=== PATIENT | male | born 1955 | race Caucasian/White ===

== ENCOUNTER 2017-09-16 06:56 | Observation (INO) | payer BC, OTHER ==
[~2017-09-16] VITALS: Ht 180.3 cm; Wt 60.7 kg
--- NOTE | ~2017-09-16 | CATHLAB ---
[facility] [place] [address] INVASIVE PROCEDURE REPORT Name: JANINE PRECIADO Matthew Room #: 211-P [facility] ..#: [id number] Admission: 09/16/17 Attend Phys: Loc Hernandez MD Discharge: Date of : 57 Date of Service: 09/16/17 1530 Report #: [id number] THIS REPORT FOR: //name// APPROVED REPORT Patient Details Patient Status: Out-Patient Room #: The patient is a 62 year-old male Event Personnel Loc Hernandez Tax Compliance Representative, Cinthia Cid, Dami Martinez RN, Loc Rae Knisely, Ceola RN lehr stripper Performed Art Access - R radial artery 34914 Initial Mod Sed Same Phys/QHP Gr5y 548421 87152 Mod Sed Same Phys/QHP Ea 431789 Left Heart Cath w/or w/o Coronaries 8633873 [facility] w/wo Plasty Single RCA 211945 Hemostasis with Hemoband Indication Syncope, Cardiomyopathy Risk Factors Hypercholesterolemia, Tobacco History () Admission/Lab Medications/Medications given during procedure Heparin Unfract. Procedure Narrative The patient was brought electively to the Cardiac Catheterization Laboratory and was prepped and draped in a sterile manner. The Right Wrist^ was infiltrated with 1% Lidocaine subcutaneous anesthesia. A TRANSRADIAL SLENDER 6F GLIDESHEATH KIT #[id number] sheath was inserted into the Right Radial Artery^. Coronary angiography was performed using coronary diagnostic catheters. The right coronary system was accessed and visualized with a JR 4 catheter. The left coronary system was accessed and visualized with a JL 4 catheter. The left ventricle was accessed and visualized with a Pigtail catheter. Left ventricular/Aortic Valve gradient assessed via catheter pullback. Left ventriculogram was performed in 30 degree projection. Closure device was deployed with a 6 Fr VASC BAND R 24CM #[id number]. The patient tolerated the procedure well and there were no complications associated with the procedure. There was no hematoma. [facility] [address] [place] [address] INVASIVE PROCEDURE REPORT Name: ILANAJANINE Matthew Room #: 211-P [facility].#: [id number] Admission: 09/16/17 Attend Phys: Loc Hernandez MD Discharge: Date of : 57 Date of Service: 09/16/17 1530 Report #: [id number] Intraoperative Conscious Sedation Sedation start time: 08:05 Case end Time: 09:36 Fentanyl 25.0 mcg Versed 2.0 mg Fluoro Time: 15.09 minutes Dose: DAP 4385.10 cGycm2 450 mGy Contrast Type and Amount: Omnipaque 150 ml Coronary Angiography The patient's coronary anatomy is right dominant. [place] Artery Percent Stenosis Left Main: 40 % Prox LAD: 50 % Mid/Distal LAD: 70 % Circumflex: 0 % RCA: 80 % Ramus: %left main had an ostial 40% stenosis. rca was tortuous and had a proximal 80% and mid 70% stenosis. Left Ventriculography The left ventricle is normal in size with normal contractility. The left ventricular ejection fraction is estimated to be 50-55%. Left ventricular wall motion abnormalities are not present. There is no mitral insufficiency. Hemodynamics The aortic pressure is 94/69 mmHg with a mean of 80 mmHg. The left ventricular pressure is 105/6 mmHg with a mean of mmHg. The left ventricular end diastolic pressure is 15 mmHg. There was no gradient across the aortic valve upon pullback. Pullback from the left ventricle to the aorta revealed no gradient across the aortic valve. PCI Technique Lesion Anticoagulation was achieved with Heparin. Patient was preloaded with Brillinta. Percutaneous coronary intervention was performed on the mid right coronary artery. The lesion stenosis prior to intervention was 70% with CLAIRE 3 flow. A VISTA 6FR AL1 #[id number] Guide Catheter was used to engage the RCA ostium. A Whisper Wire .014 x 190 #[id number] Interventional Guidewire was used to cross the lesion. BALLOON DILATION A Balloon catheter TREK RX 2.50 X 8 #[id number] was inserted and inflated up to 14.00atm for 22seconds. Repeat angiography revealed the following post-dilatation results: 50% stenosis. STENT DEPLOYMENT [facility] [address] [place] [address] INVASIVE PROCEDURE REPORT Name: JANINE PRECIADO Room #: 211-P [facility] M.R.#: [id number] Admission: 09/16/17 Attend Phys: Loc Hernandez MD Discharge: Date of : 57 Date of Service: 09/16/17 1530 Report #: [id number] A drug-eluting stent RESOLUTE RX 3.0 X 15 #[id number] was inserted and inflated up to 12.00atm for 12seconds. Repeat angiography revealed the following post-stent deployment results: 0% stenosis. Final angiography reveals 0 % stenosis with CLAIRE 3 flow. COMMENTS Poor guide support with a 6 fr jcr4 guide. Right Amplatz I guide unable to cannulate RCA. Left Amplatz I guide noted to deep throat the rca with pressure damping. Catheter was pulled back proximal to stenosis. BMW wire unable to cross mid rca stenosis, possibly secondary to poor guide support. Whisper wire was able to cross the stenosis in the mid rca. PCI Technique Lesion 2 Percutaneous Coronary Intervention was performed on the proximal right coronary artery. Patient was preloaded with Brillinta. Percutaneous coronary intervention was performed on the proximal right coronary artery. The lesion stenosis prior to intervention was 80% with CLAIRE 3 flow. A VISTA 6FR AL1 #837263 Guide Catheter was used to engage the RCA ostium. A Whisper Wire .014 x 190 #[id number] Interventional Guidewire was used to cross the lesion. Balloon Dilation A Balloon catheter TREK RX 2.50 X 8 #[id number] was inserted and inflated up to 16.00atm for 15seconds. Repeat angiography revealed the following post-dilatation results: 50% stenosis with staining proximally suggesting dissection caused by the guiding catheter. Stent Deployment A drug-eluting stent RESOLUTE RX 3.0 X 12 #[id number] was inserted and inflated up to 9atm for 11seconds. Additional Inflation: 20.00atm for 22seconds. Guide catheter was pulled back to the ostium of the rca. The stent was able to cover the stenosis as well as the proximal dissection caused by the guide catheter. Final angiography reveals 0 % stenosis with CLAIRE 3 flow. Comments Final arteriogram performed using a 6 fr jr4 diagnostic catheter should no residual stenosis nor residual dissection Conclusion [facility] [address] [place] [address] INVASIVE PROCEDURE REPORT Name: ILANAJANINE Matthew Room #: 211-P [facility] IN M.R.#: [id number] Admission: 09/16/17 Attend Phys: Loc Hernandez MD Discharge: Date of : 57 Date of Service: 09/16/171529 Report #: [id number] 1. cad manifested by a 40% ostial left main stenosis and a 70% mid lad stenosis. 2. proximal 80% and mid 70% stenosis noted in the rca 3. successful placement of stents in the proximal and mid rca Recommendations Smoking Cessation Cardiac Rehabilitation Referral Aggressive Medical Therapy Medications Administered Ticagrelor <ELECTRONICALLY SIGNED> By: Loc Hernandez MD, FACC 09/16/171529 29 29 Loc Hernandez MD, FACC /INF
--- NOTE | ~2017-09-16 | EKG ---
[address] [place] [address] [facility] [place] [address] ELECTROCARDIOGRAM REPORT Name: JANINE PRECIADO [id number] Admission: 09/16/17 Attend Phys: Loc Hernandez MD, FA Discharge: Date of : 57 Report #: [id number] THIS REPORT FOR: //name// [facility] Test Date: 2017-09-16 Test Time: 07:31:15 Pat Name: JANINE PRECIADO Department: Room: Gender: Support Team Member: Teodoro VALDES : 1955 Requested By: Loc Hernandez Order Number: [id number] MD: Lizandro Fuller Measurements Intervals [place] Rate: 78 P: 78 IN: 126 QRS: 50 QRSD: 102 T: 68 QT: 421 QTc: 480 Interpretive Statements Sinus rhythm Borderline prolonged QT interval No previous ECG available for comparison Electronically Signed On 09-16-2017 8:56:19 CDT by Lizandro Fuller [email or web address] <ELECTRONICALLY SIGNED> By: Lizandro Fuller MD, [facility] 09/16/17 0856 0731 0731 Lizandro Fuller MD, FACC /EPI
--- NOTE | ~2017-09-16 | EKG ---
[address] [address] ELECTROCARDIOGRAM REPORT Name: JANINE PRECIADO Room #: 211-P [facility].R.#: [id number] Admission: 09/16/17 Attend Phys: Loc Hernandez MD, FA Discharge: Date of : 57 Report #: [id number] THIS REPORT FOR: //name// [facility] Test Date: 2017-09-16 Test Time: 10:37:23 Pat Name: JANINE PRECIADO Department: Room: 211 Gender: M Plating Foreman: Teodoro VALDES : 1955 Requested By: Loc Hernandez Order Number: [id number] MD: Rio Suarez Measurements Intervals [place] Rate: 69 P: 87 HI: 136 QRS: 44 QRSD: 94 T: 83 QT: 433 QTc: 464 Interpretive Statements Sinus rhythm Compared to ECG 09/16/2017 07:31:15 No significant changes Electronically Signed On 09-16-2017 11:20:44 CDT by Rio Suarez [email or web address] <ELECTRONICALLY SIGNED> By: Rio Suarez MD 09/16/17 1120 1037 1037 Rio Suarez MD /TATIANA
--- NOTE | ~2017-09-16 | D ---
[facility] [place] [address] DISCHARGE SUMMARY Name: JANINE PRECIADO Room #: 211-P [facility] Natty Campbell#: [id number] Admission: 09/16/17 Attend Phys: Loc Hernandez MD, FA Discharge: 09/17/17 Date of : 57 Report #: [id number] THIS REPORT FOR: //name// CC: Loc Morrison DO DATE OF SERVICE: 09/17/2017 DISCHARGE DIAGNOSES: 1. Syncope. 2. Coronary artery disease. 3. Cardiomyopathy. 4. Hyperlipidemia. 5. Tobacco abuse. 6. Chronic obstructive pulmonary disease. CONSULTANTS: None. PROCEDURES: Left heart catheterization with placement of two drug-eluting stents in the right coronary artery via the radial approach. PRIMARY CARE PHYSICIAN: Dr. Loc Morrison, in [place], [place]. HISTORY OF PRESENT ILLNESS: The patient is a 62-year-old white male who is admitted for outpatient cardiac catheterization. The patient has no previous history of heart disease. Approximately a month ago, the patient was at home and started coughing. He then stood up to walk across the room. He then woke up on the floor and believes he had a brief loss of consciousness. There is no seizure activity. He denied any chest pain or palpitations with the episode. He went to see his primary care physician. He apparently had a carotid Doppler study. He had an EEG, that was noted to be abnormal. CT scan of the chest showed a small nodule. He underwent an echocardiogram that showed left ventricular systolic dysfunction. He was referred to my office and I saw him in the clinic on September 02. I felt he had evidence of cardiomyopathy and had a syncopal spell. I recommended ruling out coronary artery disease with a cardiac catheterization. He was given samples of Bystolic 5 mg to take once a day. Since that time, he has had no further syncope. PAST MEDICAL HISTORY: Significant for hemorrhoid surgery, hyperlipidemia, and COPD. MEDICATIONS: Consists of Proventil, aspirin, Symbicort, simvastatin, Spiriva, and I recently gave him samples of Bystolic 5 mg to take once a day. ALLERGIES: He had no known drug allergies. [facility] [address] [place] [address] DISCHARGE SUMMARY Name: JANINE PRECIADO Room #: 211-P [facility] Natty Campbell#: [id number] Admission: 09/16/17 Attend Phys: Loc Hernandez MD, Discharge: 09/17/17 Date of : 57 Report #: [id number] SOCIAL HISTORY: The patient is , lives in [place], [place]. 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 He smokes a pack of cigarettes a day. PHYSICAL EXAMINATION: GENERAL: A middle-aged male. VITAL SIGNS: His blood pressure was 140/80, his pulse is 70. CHEST: Clear to auscultation. CARDIOVASCULAR: Regular rate and rhythm. ABDOMEN: Soft. EXTREMITIES: Had no edema. SKIN: Warm and dry. RADIOLOGICAL DATA: ECG showed a sinus rhythm and nonspecific T-wave changes. LABORATORY DATA: Sodium 141, glucose 112. Creatinine 1.0. Liver function studies were normal. His cholesterol was 200, triglyceride 111, HDL 58, LDL 120. White blood cell count 7.7, hemoglobin 14.1. HOSPITAL COURSE: The patient was brought to the outpatient department and I performed a left heart catheterization from the right radial artery. Results actually showed a normal left ventricular function with an estimated ejection fraction of 50%. LVEDP was 15. He had a 70% discrete narrowing of the mid LAD. The circumflex had no significant disease. The right coronary artery had proximal 80% and the mid 70% stenosis and a tortuous right coronary artery. Because of severity in the right coronary artery and history of a cardiomyopathy with syncope, I did recommend stenting. He was given heparin and low dose of Brilinta. I then placed two drug-eluting stents in the right coronary artery, one in the mid and one in the proximal right coronary artery. The procedure was difficult because of an usual takeoff of the right coronary artery. An Amplatz left guide was used and actually cause a small dissection in the proximal right coronary artery that was sealed with the drug-eluting stent. He actually tolerated the procedure well and had no significant chest pain, arrhythmias or heart failure. A Vasc band was placed over the right radial artery and he had no further bleeding. He was admitted to a monitored bed. Overnight, he did have some nausea, but no chest pain or arrhythmias. The following day, ECG showed a sinus rhythm with no ST or T-wave changes. His lab work the following day is significant for troponin that bumped at 5.28 and hemoglobin 14.4. At time of discharge, he is ambulating, and had no further complaints. His vital signs, he had a blood pressure of 120/70, his pulse of 80. He was afebrile. He was discharged on his home medications including albuterol inhaler, aspirin 81 mg a day, Symbicort. I did recommend switching from simvastatin 20 mg a day to a moderate intensity statin drug Lipitor 40 mg a day. He was continued his Spiriva inhaler. He was started on Brilinta 90 mg twice a day following placement of the drug-eluting stent, which I would take for up to 1 year. [address] [address] DISCHARGE SUMMARY Name: JANINE PRECIADO Room #: [address] [place] [address] Natty Campbell#: [id number] Admission: 09/16/17 Attend Phys: Loc Hernandez MD, FA Discharge: 09/17/17 Date of : 57 Report #: [id number] will be given nitroglycerin to take as needed for chest pain. He was noted to have an elevated troponin following the procedure which I suspect was secondary to the dissection. Fortunately, he had no further chest pain or ECG changes. He did recommend he continue his beta glen in the form of Bystolic 5 mg a day. He actually was found to have preserved left ventricular function. Because of the vascular disease, I would consider an SHUKRI inhibitor in the future. If he develops angina in future, I would consider stenting of the mid LAD as well. He was discharged to return to care of Dr. Loc Morrison for routine medical care. I discussed the situation with the patient and his . I am not sure why he had the syncopal spell recently, although it is possibly vasovagal. He will be mailed an event recorder to rule out arrhythmia. He actually was found to have no significant cardiomyopathy which was suggested by echo. I have strongly recommended he attempt to stop smoking, maintain low-fat diet. I did recommend he slowly increase his exercise activity. He was given a release to return to work in 5 days as a groundskeeping maintenance. I would recommend he follow up with Dr. Morrison for routine medical care. He does have an appointment to see a ornamental iron worker about his lung nodule. He was not to stop his Brilinta for at least 3 months. I plan on seeing him in the cardiology clinic in 1 month as well. He was to contact my office if he had recurrent chest pain, syncope, or bleeding from the Brilinta. <ELECTRONICALLY SIGNED> By: Loc Hernandez MD, FACC 09/17/17 1630 0741 0908 Loc Hernandez MD, FACC /nt
--- NOTE | ~2017-09-16 | EKG ---
[address] [employer] [place] [address] ELECTROCARDIOGRAM REPORT Name: JANINE PRECIADO Room #: 211-P [facility] M.R.#: [id number] Admission: 09/16/17 Attend Phys: Loc Hernandez MD, Discharge: Date of : 57 Report #: [id number] THIS REPORT FOR: //name// [facility] Test Date: 2017-09-17 Test Time: 06:11:56 Pat Name: JANINE PRECIADO Department: Room: 211 P Gender: M Chief Analytics Officer: GR : 1955 Requested By: Loc Hernandez Order Number: [id number] MD: Lizandro Fuller Measurements Intervals [place] Rate: 79 P: 87 TX: 128 QRS: 23 QRSD: 95 T: 44 QT: 421 QTc: 483 Interpretive Statements Sinus rhythm Borderline prolonged QT interval Baseline wander in lead(s) I,III,aVR,aVL,aVF Compared to ECG 09/16/2017 10:37:23 No significant changes Electronically Signed On 09-17-2017 9:14:16 CDT by Lizandro Fuller [email or web address] <ELECTRONICALLY SIGNED> By: Lizandro Fuller MD, [facility] 09/17/17 0914 0611 Lizandro Fuller MD, [facility] /EPI
[~2017-09-16 06:56] MED LIST: ASPIR 8181 MG PO; CENTRUM SILVER1 EAC2 PO; SIMVASTATIN20 MG PO; SPIRIVA18 MCG INH; SYMBICORT160 MCG/4. INH; VENTOLIN HFA 1818 GM INH
[2017-09-16 07:19] VITALS: BP 130/93
[2017-09-16 07:20] LABS: HEMATOCRIT 46.3 % (42.0-52.0); HEMOGLOBIN 15.7 gm/dL (14.0-18.0); MCH 30.4 pg (26.0-34.0); MCHC 33.8 g/dL (28.0-37.0); MCV 90.1 fL (80.0-100.0); RBC 5.14 mil/uL (4.50-6.00); RDW 14.2 % (10.5-14.5)
[2017-09-16 07:40] LABS: ANION GAP 5 mmol/L (7-16); BUN 17 mg/dL (7-18); CALCIUM 9.4 mg/dL (8.5-10.1); CHLORIDE 103 mmol/L (98-107); CO2 33 mmol/L (21-32); GLUCOSE 112 mg/dL (74-106); POTASSIUM 4.2 mmol/L (3.5-5.1); SODIUM 141 mmol/L (136-145)
[2017-09-16 07:46] LABS: ALBUMIN 4.1 g/dL (3.4-5.0); ALKALINE PHOSPHATASE 93 U/L (46-116); CHOLESTEROL 200 mg/dL (<200); HDL CHOLESTEROL 58 mg/dL (>40); LDL CHOLESTEROL 120 mg/dL (<100); SGOT 21 U/L (15-37); SGPT 33 U/L (30-65); TC:HDL 3.4 Ratio (Not establshd); TOTAL BILIRUBIN 0.4 mg/dL (<0.1-1.0); TRIGLYCERIDE 111 mg/dL (<150); VLDL 22 mg/dL (<40)
[2017-09-16 11:00] VITALS: BP 138/91
[2017-09-16 11:56] VITALS: BP 138/91
[2017-09-16 15:00] VITALS: BP 138/93
[2017-09-16 19:39] VITALS: BP 131/93
[2017-09-17 04:00] LABS: HEMATOCRIT 41.8 % (42.0-52.0); HEMOGLOBIN 14.1 gm/dL (14.0-18.0); MCH 30.7 pg (26.0-34.0); MCHC 33.8 g/dL (28.0-37.0); MCV 90.8 fL (80.0-100.0); RBC 4.6 mil/uL (4.50-6.00); WBC 7.7 thou/uL (4.0-11.0)
[2017-09-17 04:12] VITALS: BP 130/93
[2017-09-17 07:28] VITALS: BP 119/77
[2017-09-17] MEDS ORDERED: BRILINTA90 MG PO (07:53)
[2017-09-17 10:44] VITALS: BP 119/77
[2017-09-17 11:42] VITALS: BP 122/87
== END 2017-09-17 12:35 | disposition home or self-care (01) ==
LOC: CATH 06:56 → 2N 10:33 → CATH 14:44 → ENTRNSPT 09-17 11:57 → EDTRNSPTSTS 09-17 12:00 → 2N 09-17 12:35
PROVIDERS: Internal Medicine Cardiovascular Disease
DX: I25.10 Atherosclerotic heart disease of native coronary artery without angina pectoris (principal); E78.5 Hyperlipidemia, unspecified; J44.9 Chronic obstructive pulmonary disease, unspecified; R55 Syncope and collapse; I42.9 Cardiomyopathy, unspecified; F17.210 Nicotine dependence, cigarettes, uncomplicated